=== PATIENT | male | born 1950 | race African-American/Black ===

== ENCOUNTER 2024-02-15 07:58 | Emergency (ER) | payer MEDICARE, MEDICAID ==
[~2024-02-15] VITALS: Ht 177.8 cm; Wt 75.0 kg
[~2024-02-15 07:58] MED LIST: ASPI-1497 PO; NICO-789 TD
[2024-02-15 08:00] VITALS: BP 152/88; PULSE 62; RESP 14; TEMP 98.6; O2SAT 99
[2024-02-15] MEDS ORDERED: INDO50CA99 MT (08:29)
[2024-02-16] MEDS ORDERED: CEPH500C2 MT (11:05)
== END 2024-02-15 08:55 | disposition home or self-care (01) ==
LOC: ER 07:58
DX: M79.672 Pain in left foot (principal); Z98.890 Other specified postprocedural states
CPT/HCPCS: 99283

== ENCOUNTER 2024-02-16 05:54 | Emergency (ER) | payer MEDICARE, MEDICAID ==
[~2024-02-16] VITALS: Ht 177.8 cm; Wt 74.0 kg
[~2024-02-16 05:54] MED LIST changes: +INDO50CA99 MT
[2024-02-16 06:48] VITALS: O2SAT 100
[2024-02-16] MEDS: ACETAMINOPHEN 325MG TABLET PO ONE (09:26)
[2024-02-16] MEDS: IBUPROFEN 400MG TABLET PO ONE (09:26)
[2024-02-16] MEDS ORDERED: CEPH500C2 MT (11:05)
[2024-02-16 11:21] VITALS: BP 144/89; PULSE 68; RESP 16; TEMP 98.6
== END 2024-02-16 11:23 | disposition home or self-care (01) ==
LOC: ER 05:54
DX: M79.672 Pain in left foot (principal); Z90.49 Acquired absence of other specified parts of digestive tract
CPT/HCPCS: 73630; 93971; 99284

== ENCOUNTER 2024-02-19 08:22 | Emergency (ER) | payer MEDICARE, MEDICAID ==
[~2024-02-19] VITALS: Ht 167.6 cm; Wt 77.0 kg
[~2024-02-19 08:22] MED LIST changes: +CEPH500C2 MT
[2024-02-19 08:30] VITALS: O2SAT 98
[2024-02-19 09:11] LABS: BASOPHILS % 1.3 % (0.0-2.0); DIFFERENTIAL COMMENT 0; EOSINOPHILS % 4.4 % (0.0-5.0); HEMATOCRIT. 43.9 % (42.0-52.0); HEMOGLOBIN. 14.9 g/dL (14.0-18.0); LYMPHOCYTES % 40.4 % (20.0-50.0); MEAN CORPUSCULAR HEMOGLOBIN 31.7 pg (28.0-32.0); MEAN CORPUSCULAR HGB CONC 33.9 g/dL (31.0-37.0); MEAN CORPUSCULAR VOLUME 93.4 fL (80.0-94.0); MEAN PLATELET VOLUME 7.7 fl (7.4-10.4); MONOCYTES % 8.7 % (2.0-8.0); NEUTROPHILS % 45.2 % (40.0-76.0); PLATELET 275 x1000/uL (130-400); RED CELL DISTRIBUTION WIDTH 14.7 % (11.6-14.6); WHITE BLOOD COUNT 4.8 x1000/uL (4.5-11.0)
[2024-02-19 09:19] LABS: CHLORIDE 109 mEq/L (98-107); POTASSIUM 4.4 mEq/L (3.5-5.1); SODIUM 140 mEq/L (136-145)
[2024-02-19 09:20] LABS: CALCIUM 9.5 mg/dL (8.7-10.4); CARBON DIOXIDE 28 mEq/L (21-32)
[2024-02-19 09:22] LABS: PROTHROMBIN TIME 10.8 sec (9.6-11.0)
[2024-02-19 09:25] LABS: CREATININE 1.1 mg/dL (0.6-1.3); GLUCOSE 109 mg/dL (70-105); UREA NITROGEN BLOOD 8 mg/dL (9-23)
[2024-02-19] MEDS: MORPHINE SULFATE 4 MG/ML INJ (FOR IV/IM USE) IV NR (10:46)
[2024-02-19] MEDS: IOHEXOL-350 100 ML BOTTLE ONE (11:00)
[2024-02-19] MEDS ORDERED: HEPARIN 25,000 UNITS PREMIX 250 ML IV SCH (11:15)
[2024-02-19] MEDS: HEPARIN 80 UNITS/KG BOLUS IV NR (17:27)
[2024-02-19] MEDS: HEPARIN 25,000 UNITS PREMIX 250 ML IV SCH (17:43)
[2024-02-19 18:34] VITALS: BP 106/59; PULSE 55; RESP 18; TEMP 98.4
[2024-02-19] MEDS ORDERED: HEPARIN BOLUS PRN aPTT 37-44 IV (23:00)
[2024-02-19] MEDS ORDERED: HEPARIN BOLUS PRN aPTT <36 IV (23:00)
== END 2024-02-19 14:17 | disposition short-term general hospital (02) ==
LOC: ER 08:22 → EDBEDREQTM 12:17 → EDBEDREQSVC 12:17 → EDBEDREQ 12:17 → 5WST 12:49 → UNDOADMIN 12:49 → 5WST 13:48 → 7WST 14:48 → 5WST 14:48 → 7WST 16:24 → UNDODISIN 18:45
DX: M79.672 Pain in left foot (principal); F17.200 Nicotine dependence, unspecified, uncomplicated; Z90.49 Acquired absence of other specified parts of digestive tract; Z98.890 Other specified postprocedural states
CPT/HCPCS: 99291; 73706; 96365; 96375; 80048; 85025; 85610; 85730; 36415; 93005; 72191; Q9967; J1644 ×2; J2270